=== PATIENT | female | born 1980 | race Caucasian/White ===

== ENCOUNTER 2019-07-13 14:17 | Outpatient (CLI) | payer OTHER ==
[2013-01-31 00:32] VITALS: BP 129/69
[2019-07-13 14:39] LABS: BASOPHILS % 0.4 % (0.0-1.5); NEUTROPHILS # 3.2 # k/uL (1.4-7.7)
[2019-07-13 15:35] LABS: eGFR (Non-African) > 60
== END 2019-07-13 14:22 ==
LOC: LAB 14:17
PROVIDERS: ATTEND Family Medicine
DX: R10.9 Unspecified abdominal pain (principal)
CPT/HCPCS: 36415; 80053; 85025; 85610; 85730